=== PATIENT | male | born 1985 | race Caucasian/White ===

== ENCOUNTER 2017-02-02 13:36 | Outpatient (CLI) | payer OTHER ==
--- NOTE | 2017-02-02 14:06 | DIAGNOSTIC IMAGING REPORT ---
PROCEDURE: XR CHEST 2 VIEW INDICATION: CHEST PAIN UNSPECIFIED TECHNIQUE: PA and lateral views. COMPARISON: Chest 01/29/2016 FINDINGS: Lungs are clear. Heart and mediastinum are normal. Thorax is normal. IMPRESSION: 1. Negative chest.
== END 2017-02-02 23:00 ==
LOC: XR SRH 13:36
DX: R07.9 Chest pain, unspecified (principal)

== ENCOUNTER 2017-02-09 11:36 | Outpatient (CLI) | payer OTHER ==
--- NOTE | 2017-02-09 13:20 | DIAGNOSTIC IMAGING REPORT ---
PROCEDURE: US ABDOMEN ULTRASOUND-LIMITED INDICATION: ELEVATED LIVER ENZYMES TECHNIQUE: Sparks scale and color Doppler sonographic images of the abdomen were obtained without comparison. COMPARISON: None. FINDINGS: The liver is normal in size, contour, and echotexture. No mass or intrahepatic biliary dilatation. The gallbladder is normal without stones or sludge. The wall is normal thickness measuring 2.4 mm No pericholecystic fluid or Butler sign. The extrahepatic common duct is normal measuring 4.1 The visualized pancreas is normal without ductal dilatation or peripancreatic fluid collection. The abdominal aorta is normal in its course and caliber. The retrohepatic inferior vena cava is patent. There is appropriate hepatopetal flow in the portal vein. The right kidney measures 10.2 cm in length. There is no perihepatic or perisplenic ascites. IMPRESSION: 1. Normal abdominal ultrasound.
== END 2017-02-09 23:00 ==
LOC: US SRH 11:36
DX: R74.8 Abnormal levels of other serum enzymes (principal)

== ENCOUNTER 2017-02-10 19:29 | Emergency (ER) | payer OTHER ==
--- NOTE | 2017-02-10 21:28 | ED NURSING NOTES ---
Clinical Report - Nurses [facility] [address] [place] [address] 02/10/2017 19:32 Patient: LURDES VANN TRIAGE Triage time 2000. Acuity: LEVEL 3. Chief Complaint: DIZZINESS and NEAR-SYNCOPE and (ear ringing right). Alert. No acute distress. SEPSIS SCREEN: Sepsis Screen. Negative (no infection suspected/documented). ABDIRASHID COMA SCORE: [place] Coma Scale: 15- eyes open spontaneously (4); best verbal response- oriented x 4 (5); best motor response- obeys commands (6). --20:17 Teagan Morris R.N. 20:12 02/10/17. BP: 114/75. HR: 81. RR: 18. O2 saturation: 96%. Temp: 98.1 F. Pain level now 10. --20:17 Teagan Morris R.N. Weight: 105.6 kg. Height/Length: 67 inches. BMI: 36.5. --20:26 Teagan Morris R.N. Medications HydrOXYzine HCl Oral 25 mg, Q 8hrs as needed, panic attacks. Lantus Subcutaneous 26 units, 2x a day. NovoLOG Subcutaneous, as needed (sliding scale). --20:24 Teagan Morris R.N. Cyclobenzaprine HCl ER Oral. --20:24 Teagan Morris R.N. Methocarbamol Oral. --20:25 Teagan Morris R.N. Allergies Amoxicillin. Sulfa Antibiotics. --20:24 Teagan Morris R.N. History Arrived by private vehicle. Historian: patient. Accompanied by family. Primary physician (Loni Reese). ( ambulatory to room). This started 3 days. ( hx of ear ringing, Right ear ringing x few days and at 1800 today had spinning feeling, tried to stand and was unsteady and unable to focus. Now remnants of dizzyness and ear ringing, mild headache, mild nausea.). PAST MEDICAL HX: Immunizations: up-to-date. SOCIAL HX: Never smoker. No alcohol use or drug use. No infectious disease exposure. ABUSE ASSESSMENT: No report of abuse. SELF HARM ASSESSMENT: A self harm assessment was performed. The patient answered "no" to the question "Do you have thoughts of harming or killing yourself?" and "Are you here because you tried to hurt yourself?". FALL RISK ASSESSMENT: Fall risk assessment completed. No fall risk identified. NUTRITIONAL RISK ASSESSMENT: The nutritional risk assessment revealed no deficiencies. FUNCTIONAL ASSESSMENT: Functional assessment: no impairments noted. LEARNING NEEDS ASSESSMENT: The learning needs assessment revealed no barriers. SKIN INTEGRITY ASSESSMENT: Skin integrity risk assessment completed. No skin integrity risk identified. --20:17 Teagan Morris R.N. PROBLEMS: Back Pain. Hyperglycemia. Diabetic Ketoacidosis. Anxiety Reaction. Type I diabetes mellitus uncontrolled. --20:26 Teagan Morris R.N. ADDITIONAL SURGERIES: no known surgeries. Interventions ID band on patient. To treatment room. --20:17 Teagan Morris R.N. PHYSICAL ASSESSMENT Ambulatory to room. GENERAL / NEURO / PSYCH: Oriented X 4. Appears in no acute distress. Alert. Speech within normal limits. RESPIRATORY: Respirations not labored. SKIN: Skin is warm and dry. --20:17 Teagan Morris R.N. NURSING PROGRESS NOTES Monitoring of patient in place. Patient gowned. Head of bed elevated. Two patient identifiers checked. Call light placed in reach. Side rails up x 2. Bed placed in lowest position. Brakes of bed on. Patient ready for evaluation- chart flagged. ED physician notified. --20:17 Teagan Morris R.N. 20:43 02/10/2017 Site #1 started via IV in the right antecubital space with an 20g angiocath, with aseptic technique and good blood return; one attempt. Blood drawn: rainbow set. Labeled in the presence of the patient and sent to the lab. Saline lock flushed with 5 mL saline. --20:43 Teagan Morris R.N. EKG time: (2033). Patient ID band checked for patient name and birthdate: patient confirmed. Blood samples drawn by nurse ; labeled in presence of the patient and sent to lab. --20:45 Teagan Morris R.N. 21:01 02/10/2017 Meclizine PO 50 mg given. Allergies verified, confirmed 5 rights and sedative warning given to the patient. --21:01 Teagan Morris R.N. 21:52 02/10/17. BP: 117/92. HR: 87. RR: 15. O2 saturation: 95%. Temp: 97.7 F. Pain level now: 09/12. 21:00 02/10/17. BP: 100/44. HR: 80. RR: 18. O2 saturation: 95%. --21:53 Teagan Morris R.N. The patient reports no complaints and he is resting quietly. Overall patient status is improved- he states feels better. GENERAL / NEURO / PSYCH: Patient is calm and cooperative. Affect appears normal. Alert. Oriented X 4. RESPIRATORY: No respiratory distress. CVS: Normal sinus rhythm noted. SKIN: Skin is warm and dry. --21:53 Teagan Morris R.N. 22:10 02/10/2017 Site #1 removed upon discharge. Catheter intact. Pressure dressing applied. --22:22 Teagan Morris R.N. DISPOSITION / DISCHARGE Departure time: 2211. Condition at departure: improved and stable. Discharge instructions provided and reviewed with the patient. Patient verbalized understanding. Written instructions provided in [place]. The patient was discharged home and accompanied by spouse. He left the Emergency Department ambulatory and via private vehicle. Spouse driving. --22:18 Teagan Morris R.N. 22:14 02/10/17. BP: deferred. HR: deferred. RR: deferred. O2 saturation: deferred. Temp: deferred. Pain level now deferred. --22:18 Teagan Morris R.N. Locked/Released at 02/10/2017 22:22 by Teagan Morris R.N.
--- NOTE | 2017-02-10 21:28 | ED CLINICAL REPORT ---
Clinical Report - Physicians/Mid Levels [facility] [address] [place] [address] 02/10/2017 19:32 Patient: LURDES VANN Time Seen: 20:26; initial patient contact, initial documentation, patient care assumed. Arrived- By private vehicle. Historian- patient. HISTORY OF PRESENT ILLNESS Chief Complaint: ringing. Modifying factors. Not worsened by anything. Not relieved by anything. This started years ago and is still present and worsening (worse 3 days ago). Location- right ear. The patient has not had pain. The patient has had moderate right-sided tinnitus. The tinnitus on the right has been constant and associated with ringing and vertigo. No ear pain or drainage, hearing loss or nasal discharge or congestion. No complaint of foreign body in the ear, ear trauma or recent barotrauma. (states he recently used ear wash kit to try and remove wax out of L ear). Similar symptoms previously: Chronically, milder. Recent medical care: Not recently seen/assessed. REVIEW OF SYSTEMS No difficulty breathing or chest pain. He has had transient dizziness described as vertiginous in quality (today, first episode came on while laying on couch watching tv). Not lightheaded. All systems otherwise negative, except as recorded above. PAST HISTORY See nurses notes. PROBLEMS: Back Pain. Hyperglycemia. Diabetic Ketoacidosis. Anxiety Reaction. Type I diabetes mellitus uncontrolled. --20:26 Teagan Morris RPrince. ADDITIONAL SURGERIES: no known surgeries. SOCIAL HISTORY Never smoker. Not exposed to second-hand smoke at home. No alcohol use or drug use. No recent travel. Is a local resident. He lives with spouse. FAMILY HISTORY Negative. ADDITIONAL NOTES The nursing notes have been reviewed with agreement regarding the chief complaint, HPI, ROS, PMH and patient medications and allergies. PHYSICAL EXAM Vital Signs: 02/10/2017 20:12 BP: 114/75. HR: 81. RR: 18. O2 saturation: 96%. Temp: 98.1 F. Have been reviewed as normal and appear to be correct. Appearance: Alert. No acute distress. Eyes: Eyes normal inspection. Throat: Pharynx normal. Ear (left): Left ear normal. Left tympanic membrane normal. Nose: Nose normal. Ear (right): There is mild swelling of the external canal. The tympanic membrane is completely obscured by cerumen. Right ear abnormal or tympanic membrane abnormal. Neck: Normal inspection. Neck supple. CVS: Normal heart rate and rhythm. Heart sounds normal. Respiratory: No respiratory distress. Breath sounds normal. Back: Normal inspection. Skin: Skin warm and dry. Normal skin color. No rash. Normal skin turgor. Extremities: Extremities exhibit normal ROM. No lower extremity edema. Neuro: Oriented X 3. No motor deficit. No sensory deficit. LABS, X-RAYS, AND EKG EKG: EKG time: (2033). No acute process. No acute ischemia. Normal EKG. Rate: 81. Normal EKG. The study has been interpreted contemporaneously by me (and Dr East). The EKG appears to be a good tracing. Interpretation time: 2034. Laboratory Tests: CBC w Diff: (CHRISTIAN: 02/10/2017 20:30) ( [facility] [place] 02/10/2017 21:08) Final results Test Result Flag Units (Reference) WHITE BLOOD COUNT 8.8 K/uL (4.5-11.5) RED BLOOD COUNT 5.72 M/uL (4.50-5.90) HEMOGLOBIN 16.6 gm/dL (13.5-17.5) HEMATOCRIT 48.8 % (41.0-53.0) MEAN CELL VOLUME 85 fL (80-100) MEAN CORPUSCULAR HGB 29 pg (26-34) MEAN CORPUSCULAR HGB CONC 34 g/dL (31-37) RED CELL DISTRIBUTION WIDTH 13.0 % (11.6-14.8) PLATELET COUNT 198 K/uL (150-400) NEUTROPHIL % 68.8 % (50-75) LYMPH % 19.9 L % (25-40) MONO % 7.4 % (3-14) EOSINOPHIL % 3.3 % (0-4) BASOPHIL % 0.6 % (0-2) CHEM 13 PANEL: (CHRISTIAN: 02/10/2017 20:30) ( [facility] [place] 02/10/2017 21:06) Final results Test Result Flag Units (Reference) GLUCOSE 164 H mg/dL (70-110) BUN 18 mg/dL (7-18) CREATININE 1.1 mg/dL (0.6-1.3) Estimated GFR >60 mL/min Estimated GFR- >60 mL/min Note: Persistent reduction over 3 months in eGFR<60 mL/min/1.73 m2 defines CKD. Patients with eGFR values>=60 mL/min/1.73 m2 may also have CKD if evidence ofpersistent proteinuria. Additional information may be foundat www.kidney.org. SODIUM 135 L mmol/L (136-145) POTASSIUM 3.9 mmol/L (3.5-5.1) CHLORIDE 103 mmol/L (98-107) CARBON DIOXIDE 31 mmol/L (21-32) CALCIUM 9.4 mg/dL (8.5-10.1) TOTAL PROTEIN 7.3 g/dL (6.4-8.2) ALBUMIN 3.9 g/dL (3.3-5.0) BILIRUBIN, TOTAL 0.5 mg/dL (0.0-1.0) ALKALINE PHOSPHATASE 119 H U/L (46-116) AST (SGOT) 55 H U/L (15-37) ALT (SGPT) 85 H U/L (12-78) MAGNESIUM 2.1 mg/dL (1.8-2.4) CPK 142 U/L (24-260) TROPONIN I <0.05 ng/mL (0.00-1.5) TROPONIN REFERENCE RANGE:<0.1 NEGATIVE0.1-1.5 INDETERMINANT>1.5 POSITIVE . PROGRESS AND PROCEDURES Patient and spouse counseled in person regarding the patient's stable condition, test results and diagnosis. 21:16. Differential Diagnosis: I considered labyrinthitis, drug-related etiology, benign positional vertigo, brainstem TIA and brainstem CVA as a possible cause of dizziness in this patient. This is a partial list of diagnoses considered. Other possible considerations: aom, aoe, cerumen impaction, perforated tm, asa abuse. Above considerations are based on history, physical exam, reassessment, laboratory data and EKG. Differential diagnosis was discussed with patient. Disposition: Discharged home in good and unchanged condition (21:28). Condition: good and stable. CLINICAL IMPRESSION Impacted cerumen right ear. Acute dizziness INSTRUCTIONS Warnings: GENERAL WARNINGS: Return or contact your physician immediately if your condition worsens or changes unexpectedly, if not improving as expected, or if other problems arise. Specifically return if problem worsens. Prescription Medications: Cortisporin otic suspension: Instill 4 drops into affected ear every 6 hours for 1 week. Dispense ten (10) mL. No refills. Substitution is permissible. Meclizine 25 mg: take 1 tablet orally every 8 hours as needed for dizziness. Dispense twenty (20). No refill. Follow-up: Follow up with your doctor in about three days as needed. Call for an appointment. Summary of care provided to patient. Understanding of the discharge instructions verbalized by parent. Follow-up with: Ayden Douglas MD, ENT, , [facility] [address] [address]; Venu Jerez MD, ENT, , [facility], [address] [facility] [address] [address]; Be Serra MD, ENT, , [facility], [facility] [address] [address]; Raj Benitez MD, ENT, , [facility], [facility] [address] [address]; Ayden Reyes MD, ENT, , [facility], [facility] [address] [address]; Sanchez Perales MD, ENT, , [facility], [address] [facility] [address], [place], [address] Follow up in about three days. Call for an appointment. Summary of care provided to patient. (Electronically signed by Cris Whitlock A.R.N.P. 02/11/2017 13:26)
--- NOTE | 2017-02-10 21:28 | ED CLINICAL REPORT ---
Clinical Report - Physicians/Mid Levels [facility] [address] [place] [address] 02/10/2017 19:32 Patient: LURDES VANN Time Seen: 20:26; initial patient contact, initial documentation, patient care assumed. Arrived- By private vehicle. Historian- patient. HISTORY OF PRESENT ILLNESS Chief Complaint: ringing. Modifying factors. Not worsened by anything. Not relieved by anything. This started years ago and is still present and worsening (worse 3 days ago). Location- right ear. The patient has not had pain. The patient has had moderate right-sided tinnitus. The tinnitus on the right has been constant and associated with ringing and vertigo. No ear pain or drainage, hearing loss or nasal discharge or congestion. No complaint of foreign body in the ear, ear trauma or recent barotrauma. (states he recently used ear wash kit to try and remove wax out of L ear). Similar symptoms previously: Chronically, milder. Recent medical care: Not recently seen/assessed. REVIEW OF SYSTEMS No difficulty breathing or chest pain. He has had transient dizziness described as vertiginous in quality (today, first episode came on while laying on couch watching tv). Not lightheaded. All systems otherwise negative, except as recorded above. PAST HISTORY See nurses notes. PROBLEMS: Back Pain. Hyperglycemia. Diabetic Ketoacidosis. Anxiety Reaction. Type I diabetes mellitus uncontrolled. --20:26 Teagan Morris RPrince. ADDITIONAL SURGERIES: no known surgeries. SOCIAL HISTORY Never smoker. Not exposed to second-hand smoke at home. No alcohol use or drug use. No recent travel. Is a local resident. He lives with spouse. FAMILY HISTORY Negative. ADDITIONAL NOTES The nursing notes have been reviewed with agreement regarding the chief complaint, HPI, ROS, PMH and patient medications and allergies. PHYSICAL EXAM Vital Signs: 02/10/2017 20:12 BP: 114/75. HR: 81. RR: 18. O2 saturation: 96%. Temp: 98.1 F. Have been reviewed as normal and appear to be correct. Appearance: Alert. No acute distress. Eyes: Eyes normal inspection. Throat: Pharynx normal. Ear (left): Left ear normal. Left tympanic membrane normal. Nose: Nose normal. Ear (right): There is mild swelling of the external canal. The tympanic membrane is completely obscured by cerumen. Right ear abnormal or tympanic membrane abnormal. Neck: Normal inspection. Neck supple. CVS: Normal heart rate and rhythm. Heart sounds normal. Respiratory: No respiratory distress. Breath sounds normal. Back: Normal inspection. Skin: Skin warm and dry. Normal skin color. No rash. Normal skin turgor. Extremities: Extremities exhibit normal ROM. No lower extremity edema. Neuro: Oriented X 3. No motor deficit. No sensory deficit. LABS, X-RAYS, AND EKG EKG: EKG time: (2033). No acute process. No acute ischemia. Normal EKG. Rate: 81. Normal EKG. The study has been interpreted contemporaneously by me (and Dr East). The EKG appears to be a good tracing. Interpretation time: 2034. Laboratory Tests: CBC w Diff: (CHRISTIAN: 02/10/2017 20:30) ( [facility] [place] [place] 02/10/[place] 21:08) Final results Test Result Flag Units (Reference) WHITE BLOOD COUNT 8.8 K/uL (4.5-11.5) RED BLOOD COUNT 5.72 M/uL (4.50-5.90) HEMOGLOBIN 16.6 gm/dL (13.5-17.5) HEMATOCRIT 48.8 % (41.0-53.0) MEAN CELL VOLUME 85 fL (80-100) MEAN CORPUSCULAR HGB 29 pg (26-34) MEAN CORPUSCULAR HGB CONC 34 g/dL (31-37) RED CELL DISTRIBUTION WIDTH 13.0 % (11.6-14.8) PLATELET COUNT 198 K/uL (150-400) NEUTROPHIL % 68.8 % (50-75) LYMPH % 19.9 L % (25-40) MONO % 7.4 % (3-14) EOSINOPHIL % 3.3 % (0-4) BASOPHIL % 0.6 % (0-2) CHEM 13 PANEL: (CHRISTIAN: 02/10/2017 20:30) ( [facility] [place] [place] 02/10/2017 21:06) Final results Test Result Flag Units (Reference) GLUCOSE 164 H mg/dL (70-110) BUN 18 mg/dL (7-18) CREATININE 1.1 mg/dL (0.6-1.3) Estimated GFR >60 mL/min Estimated GFR- >60 mL/min Note: Persistent reduction over 3 months in eGFR<60 mL/min/1.73 m2 defines CKD. Patients with eGFR values>=60 mL/min/1.73 m2 may also have CKD if evidence ofpersistent proteinuria. Additional information may be foundat www.kidney.org. SODIUM 135 L mmol/L (136-145) POTASSIUM 3.9 mmol/L (3.5-5.1) CHLORIDE 103 mmol/L (98-107) CARBON DIOXIDE 31 mmol/L (21-32) CALCIUM 9.4 mg/dL (8.5-10.1) TOTAL PROTEIN 7.3 g/dL (6.4-8.2) ALBUMIN 3.9 g/dL (3.3-5.0) BILIRUBIN, TOTAL 0.5 mg/dL (0.0-1.0) ALKALINE PHOSPHATASE 119 H U/L (46-116) AST (SGOT) 55 H U/L (15-37) ALT (SGPT) 85 H U/L (12-78) MAGNESIUM 2.1 mg/dL (1.8-2.4) CPK 142 U/L (24-260) TROPONIN I <0.05 ng/mL (0.00-1.5) TROPONIN REFERENCE RANGE:<0.1 NEGATIVE0.1-1.5 INDETERMINANT>1.5 POSITIVE . PROGRESS AND PROCEDURES Patient and spouse counseled in person regarding the patient's stable condition, test results and diagnosis. 21:16. Differential Diagnosis: I considered labyrinthitis, drug-related etiology, benign positional vertigo, brainstem TIA and brainstem CVA as a possible cause of dizziness in this patient. This is a partial list of diagnoses considered. Other possible considerations: aom, aoe, cerumen impaction, perforated tm, asa abuse. Above considerations are based on history, physical exam, reassessment, laboratory data and EKG. Differential diagnosis was discussed with patient. Disposition: Discharged home in good and unchanged condition (21:28). Condition: good and stable. CLINICAL IMPRESSION Impacted cerumen right ear. Acute dizziness INSTRUCTIONS Warnings: GENERAL WARNINGS: Return or contact your physician immediately if your condition worsens or changes unexpectedly, if not improving as expected, or if other problems arise. Specifically return if problem worsens. Prescription Medications: Cortisporin otic suspension: Instill 4 drops into affected ear every 6 hours for 1 week. Dispense ten (10) mL. No refills. Substitution is permissible. Meclizine 25 mg: take 1 tablet orally every 8 hours as needed for dizziness. Dispense twenty (20). No refill. Follow-up: Follow up with your doctor in about three days as needed. Call for an appointment. Summary of care provided to patient. Understanding of the discharge instructions verbalized by parent. Follow-up with: Ayden Douglas MD, ENT, , [facility] [address] [address]; Venu Jerez MD, ENT, , [facility], [address] [place] [address]; Be Serra MD, ENT, , [facility], [facility] [address] [address]; Raj Benitez MD, ENT, , [facility], [facility] [address] [address]; Ayden Reyes MD, ENT, , [facility], [facility] [address] [place] [address]; Sanchez Perales MD, ENT, , [facility], [address] [facility], [place], [address] Follow up in about three days. Call for an appointment. Summary of care provided to patient. (Electronically signed by Cris Whitlock A.R.N.P. 02/11/2017 13:26)
--- NOTE | 2017-02-10 21:28 | ED ORDER SUMMARY ---
..... Patient: LURDES VANN OrderSheet [facility] VisitID: [id number] [address] [place] [address] 31y, M Registration Date/Time: 02/10/2017 ORDER SHEET Weight: 105.6 kg Allergies: Amoxicillin, Sulfa Antibiotics GENERAL ORDERS: Cardiac Panel Stat (20:42 02/10/2017 LAbe R.N. per protocol) (Ack 20:51 CHagerty ER Phonograph Mechanic) UA-Culture if indicated Urgent (20:42 02/10/2017 LAbe R.N. per protocol) (Ack 20:51 CHagerty ER Phonograph Mechanic) EKG - ER Stat (20:42 02/10/2017 LAbe R.N. per protocol) (20:43 LAbe R.N.) Pulse oximeter (20:42 02/10/2017 LAbe R.N. per protocol) (20:43 LAbe R.N.) MEDICATION ORDERS: Meclizine PO 50 mg (NOW) (20:54 02/10/2017 HBivens A.R.N.P.) (21:01 LAbe R.N.) IV FLUIDS: IV Saline Lock (20:42 02/10/2017 LAbe R.N. per protocol) (20:43 LAbe R.N.) ORDER SHEET NOTES: [Electronically signed by Teagan Morris R.N. (22:22 02/10/2017)] [Electronically signed by Cris Whitlock A.R.N.P. (13:26 02/11/2017)] [Electronically locked/signed by Teagan Morris R.N. (22:22 02/10/2017)]
--- NOTE | 2017-02-10 21:28 | ED ORDER SUMMARY ---
..... Patient: LURDES VANN OrderSheet [facility] VisitID: [id number] [address] [place] [address] 31y, M Registration Date/Time: 02/10/2017 ORDER SHEET Weight: 105.6 kg Allergies: Amoxicillin, Sulfa Antibiotics GENERAL ORDERS: Cardiac Panel Stat (20:42 02/10/2017 LAbe R.N. per protocol) (Ack 20:51 CHagerty ER Furnace Mason) UA-Culture if indicated Urgent (20:42 02/10/2017 LAbe R.N. per protocol) (Ack 20:51 CHagerty ER Furnace Mason) EKG - ER Stat (20:42 02/10/2017 LAbe R.N. per protocol) (20:43 LAbe R.N.) Pulse oximeter (20:42 02/10/2017 LAbe R.N. per protocol) (20:43 LAbe R.N.) MEDICATION ORDERS: Meclizine PO 50 mg (NOW) (20:54 02/10/2017 HBivens A.R.N.P.) (21:01 LAbe R.N.) IV FLUIDS: IV Saline Lock (20:42 02/10/2017 LAbe R.N. per protocol) (20:43 LAbe R.N.) ORDER SHEET NOTES: [Electronically signed by Teagan Morris R.N. (22:22 02/10/2017)] [Electronically signed by Cris Whitlock A.R.N.P. (13:26 02/11/2017)] [Electronically locked/signed by Teagan Morris R.N. (22:22 02/10/2017)]
--- NOTE | 2017-02-11 13:27 | ED DISCHARGE INSTRUCTIONS ---
Patient: LURDES VANN General Instructions [facility] VisitID: [id number] [address] [place] [address] 31y, M Registration Date/Time: 02/10/2017 Impacted cerumen right ear. Acute dizziness INSTRUCTIONS Warnings: GENERAL WARNINGS: Return or contact your physician immediately if your condition worsens or changes unexpectedly, if not improving as expected, or if other problems arise. Specifically return if problem worsens. Prescription Medications: Cortisporin otic suspension: Instill 4 drops into affected ear every 6 hours for 1 week. Dispense ten (10) mL. No refills. Substitution is permissible. Meclizine 25 mg: take 1 tablet orally every 8 hours as needed for dizziness. Dispense twenty (20). No refill. Follow-up: Follow up with your doctor in about three days as needed. Call for an appointment. Summary of care provided to patient. Understanding of the discharge instructions verbalized by parent. Follow-up with: Ayden Douglas MD, ENT, , [facility] [address] [address]; Venu Jerez MD, ENT, , [facility], [address] [facility], [address] [address]; Be Serra MD, ENT, , [facility], [address] [place] [address]; Raj Benitez MD, ENT, , [place] [address]; Ayden Reyes MD, ENT, , [facility], [facility] [address] [address]; Sanchez Perales MD, ENT, , [facility], [address] [facility] [address], [place] [address] Follow up in about three days. Call for an appointment. Summary of care provided to patient. ADDITIONAL INFORMATION Earwax, Home Treatment Everyone produces earwax from the lining of the ear canal. It serves to lubricate and protect the ear. The wax that forms in the canal naturally moves toward the outside of the ear and falls out. Sometimes there will be a build-up of wax in the ear canal causing a blockage and loss of hearing. Directions are given below for home treatment. Home Care: If your doctor has advised you to remove a wax blockage yourself, follow these directions: Unless a prescription medicine was given, you may use an mara-ikr-mahwfch product made for clearing earwax (such as Debrox or Murine Earwax Drops). These contain carbamide peroxide and are available [id number]. Lie down with the blocked ear facing upward. Apply one dropper full of medicine and wait a few minutes. Wiggle the outer ear to get the solution to enter the canal. Lean over a sink or basin with the blocked ear facing downward. Use a rubber bulb syringe filled with warm (not hot or cold) water to rinse the ear several times. Use gentle pressure only. If you are having trouble draining the water out of your ear canal, put a few drops of rubbing alcohol (isopropyl alcohol) into the ear canal. This will help remove the remaining water. Repeat this procedure once a day for up to three days or until your hearing is back to normal. Do not use this treatment for more than three days in a row.. Do Not DO NOT use cold water to rinse the ear since this will make you dizzy. DO NOT perform this procedure if you have an ear infection. DO NOT perform this procedure if you have a ruptured eardrum. DO NOT use cotton applicators/Q-tips, matches, toothpicks, deniz pins, keys or other objects to "clean" the ear canal. This can cause infection of the ear canal or rupture of the eardrum. Because of their size and shape, it is common for cotton applicators/Q-tips to push the ear wax deeper into the ear canal instead of removing it. This can make matters worse. Follow Up with your doctor or this facility if you are not improving after three cleaning attempts. Get Prompt Medical Attention if any of the following occur: Worsening ear pain Fever of 100.4F (38C) or higher, or as directed by your healthcare provider Hearing does not return to normal after three days of treatment Fluid drainage or bleeding from the ear canal Swelling, redness or tenderness of the outer ear Headache, neck pain or stiff neck Dizziness [Uncertain Cause] Dizziness is a common symptom sometimes described as "lightheadedness" or feeling like you are going to faint. If it lasts for only a few seconds and is related to changes in position (such as getting up after lying or sitting for a long time), it is usually not a sign of anything serious. Dizziness that lasts for minutes to hours, or comes on for no apparent reason, may be a sign of a more serious problem (such as dehydration, a medicine reaction, disease of the heart or brain). Today's exam did not show an exact cause for your dizzy spell . Sometimes additional tests are required before a cause can be found. Therefore, it is important to follow up with your doctor if your symptoms continue. Home Care: 1) If a dizzy spell occurs and lasts more than a few seconds, lie down until it passes. If you are lying down, then you cannot hurt yourself by falling if you do faint. 2) Do not drive or operate dangerous equipment until the dizzy spells have stopped for at least 48 hours. 3) If dizzy spells occur with sudden standing, this may be a sign of mild dehydration. Drink extra fluids over the next few days. 4) If you recently started a new medicine or if you had the dose of a current medicine increased (especially blood pressure medicine), talk with the prescribing doctor about your symptoms. Dose adjustments may be needed. Follow Up with your doctor for further evaluation within the next seven days, if your symptoms continue. Get Prompt Medical Attention if any of the following occur: -- Worsening of your symptoms -- Fainting, headache or seizure -- Repeated vomiting -- Feeling like you or the room is spinning -- Chest, arm, neck, back or jaw pain -- Palpitations (the sense that your heart is fluttering or beating fast or hard) -- Shortness of breath -- Blood in vomit or stool (black or red color) -- Weakness of an arm or leg or one side of the face -- Difficulty with speech or vision Meclizine Hydrochloride Oral tablet What is this medicine? MECLIZINE (MEK adeline bryanen) is an antihistamine. It is used to prevent nausea, vomiting, or dizziness caused by motion sickness. It is also used to prevent and treat vertigo (extreme dizziness or a feeling that you or your surroundings are tilting or spinning around). How should I use this medicine? Take this medicine by mouth with a glass of water. Follow the directions on the prescription label. If you are using this medicine to prevent motion sickness, take the dose at least 1 hour before travel. If it upsets your stomach, take it with food or milk. Take your doses at regular intervals. Do not take your medicine more often than directed. Talk to your paramedical aide regarding the use of this medicine in children. Special care may be needed. What side effects may I notice from receiving this medicine? Side effects that you should report to your doctor or health direct care counselor as soon as possible: fainting spells fast or irregular heartbeat Side effects that usually do not require medical attention (report to your doctor or health direct care counselor if they continue or are bothersome): constipation difficulty passing urine difficulty sleeping headache stomach upset What may interact with this medicine? barbiturate medicines for inducing sleep or treating seizures digoxin medicines for anxiety or sleeping problems, like alprazolam, diazepam or temazepam medicines for hay fever and other allergies medicines for mental depression medicines for movement abnormalities as in Parkinson's disease, or for stomach problems medicines for pain medicines that relax muscles What if I miss a dose? If you miss a dose, take it as soon as you can. If it is almost time for your next dose, take only that dose. Do not take double or extra doses. Where should I keep my medicine? Keep out of the reach of children. Store at room temperature between 15 and 30 degrees C (59 and 86 degrees F). Keep container tightly closed. Throw away any unused medicine after the expiration date. What should I tell my health care provider before I take this medicine? They need to know if you have any of these conditions: asthma glaucoma prostate trouble stomach problems urinary problems an unusual or allergic reaction to meclizine, other medicines, foods, dyes, or preservatives or trying to get breast-feeding What should I watch for while using this medicine? If you are taking this medicine on a regular schedule, visit your doctor or health direct care counselor for regular checks on your progress. You may get dizzy, drowsy or have blurred vision. Do not drive, use machinery, or do anything that needs mental alertness until you know how this medicine affects you. Do not stand or sit up quickly, especially if you are an older patient. This reduces the risk of dizzy or fainting spells. Alcohol can increase possible dizziness. Avoid alcoholic drinks. Your mouth may get dry. Chewing sugarless gum or sucking hard candy, and drinking plenty of water may help. Contact your doctor if the problem does not go away or is severe. This medicine may cause dry eyes and blurred vision. If you wear contact lenses you may feel some discomfort. Lubricating drops may help. See your eye doctor if the problem does not go away or is severe. You have been given the following additional information: Cerumen Impaction, Home Care Dizziness, Unk Cause Meclizine Hydrochloride Oral tablet (Electronically signed by Cris Whitlock A.R.N.P. 02/11/2017 13:26)
--- NOTE | 2017-02-11 13:27 | ED MED RECONCILIATION SUMMARY ---
Patient: LURDES VANN Medication Reconciliation Report [facility] VisitID: [id number] [address] [place] [address] 31y, M Registration Date/Time: 02/10/2017 Weight: 105.6 kg Height/Length: 67 in. BMI: 36.5 ALLERGIES: Amoxicillin, Sulfa Antibiotics The patient's Home Medications are listed below: THE FOLLOWING MEDICATIONS NEED TO BE RECONCILED: Cyclobenzaprine HCl ER Oral HydrOXYzine HCl Oral 25 mg, Q 8hrs, panic attacks Lantus Subcutaneous 26 units, 2x a day Methocarbamol Oral NovoLOG Subcutaneous, sliding scale The source(s) of the original Home Medication information: Not obtained. The following Medications were given to the patient in the Emergency Department: Meclizine [PO] PO 50 mg, administered: 02/10/2017 9:01:00 PM The following Medications were prescribed to the patient: Cortisporin otic suspension: Instill 4 drops into affected ear every 6 hours for 1 week. Dispense ten (10) mL. No refills. Substitution is permissible. -- Cris Whitlock, Osmani.R.N.P. Meclizine 25 mg: take 1 tablet orally every 8 hours as needed for dizziness. Dispense twenty (20). No refill. -- Cris Whitlock A.R.N.P.
--- NOTE | 2017-02-11 13:27 | ED MED RECONCILIATION SUMMARY ---
Patient: LURDES VANN Medication Reconciliation Report [facility] VisitID: [id number] [address] [place] [address] 31y, M Registration Date/Time: 02/10/2017 Weight: 105.6 kg Height/Length: 67 in. BMI: 36.5 ALLERGIES: Amoxicillin, Sulfa Antibiotics The patient's Home Medications are listed below: THE FOLLOWING MEDICATIONS NEED TO BE RECONCILED: Cyclobenzaprine HCl ER Oral HydrOXYzine HCl Oral 25 mg, Q 8hrs, panic attacks Lantus Subcutaneous 26 units, 2x a day Methocarbamol Oral NovoLOG Subcutaneous, sliding scale The source(s) of the original Home Medication information: Not obtained. The following Medications were given to the patient in the Emergency Department: Meclizine [PO] PO 50 mg, administered: 02/10/2017 9:01:00 PM The following Medications were prescribed to the patient: Cortisporin otic suspension: Instill 4 drops into affected ear every 6 hours for 1 week. Dispense ten (10) mL. No refills. Substitution is permissible. -- Cris Whitlock, Osmani.R.N.P. Meclizine 25 mg: take 1 tablet orally every 8 hours as needed for dizziness. Dispense twenty (20). No refill. -- Cris Whitlock A.R.N.P.
--- NOTE | 2017-02-11 13:27 | ED DISCHARGE INSTRUCTIONS ---
Patient: LURDES VANN General Instructions [facility] VisitID: [id number] [address] [place] [address] 31y, M Registration Date/Time: 02/10/2017 Impacted cerumen right ear. Acute dizziness INSTRUCTIONS Warnings: GENERAL WARNINGS: Return or contact your physician immediately if your condition worsens or changes unexpectedly, if not improving as expected, or if other problems arise. Specifically return if problem worsens. Prescription Medications: Cortisporin otic suspension: Instill 4 drops into affected ear every 6 hours for 1 week. Dispense ten (10) mL. No refills. Substitution is permissible. Meclizine 25 mg: take 1 tablet orally every 8 hours as needed for dizziness. Dispense twenty (20). No refill. Follow-up: Follow up with your doctor in about three days as needed. Call for an appointment. Summary of care provided to patient. Understanding of the discharge instructions verbalized by parent. Follow-up with: Ayden Douglas MD, ENT, , [facility] [address] [address]; Venu Jerez MD, ENT, , [facility], [address] [facility], [address] [address]; Be Serra MD, ENT, , [facility], [address] [place] [address]; Raj Benitez MD, ENT, , [place] [address]; Ayden Reyes MD, ENT, , [facility], [facility] [address] [address]; Sanchez Perales MD, ENT, , [facility], [address] [facility] [address], [place] [address] Follow up in about three days. Call for an appointment. Summary of care provided to patient. ADDITIONAL INFORMATION Earwax, Home Treatment Everyone produces earwax from the lining of the ear canal. It serves to lubricate and protect the ear. The wax that forms in the canal naturally moves toward the outside of the ear and falls out. Sometimes there will be a build-up of wax in the ear canal causing a blockage and loss of hearing. Directions are given below for home treatment. Home Care: If your doctor has advised you to remove a wax blockage yourself, follow these directions: Unless a prescription medicine was given, you may use an pxti-pmh-hfuoaob product made for clearing earwax (such as Debrox or Murine Earwax Drops). These contain carbamide peroxide and are available [id number]. Lie down with the blocked ear facing upward. Apply one dropper full of medicine and wait a few minutes. Wiggle the outer ear to get the solution to enter the canal. Lean over a sink or basin with the blocked ear facing downward. Use a rubber bulb syringe filled with warm (not hot or cold) water to rinse the ear several times. Use gentle pressure only. If you are having trouble draining the water out of your ear canal, put a few drops of rubbing alcohol (isopropyl alcohol) into the ear canal. This will help remove the remaining water. Repeat this procedure once a day for up to three days or until your hearing is back to normal. Do not use this treatment for more than three days in a row.. Do Not DO NOT use cold water to rinse the ear since this will make you dizzy. DO NOT perform this procedure if you have an ear infection. DO NOT perform this procedure if you have a ruptured eardrum. DO NOT use cotton applicators/Q-tips, matches, toothpicks, deniz pins, keys or other objects to "clean" the ear canal. This can cause infection of the ear canal or rupture of the eardrum. Because of their size and shape, it is common for cotton applicators/Q-tips to push the ear wax deeper into the ear canal instead of removing it. This can make matters worse. Follow Up with your doctor or this facility if you are not improving after three cleaning attempts. Get Prompt Medical Attention if any of the following occur: Worsening ear pain Fever of 100.4F (38C) or higher, or as directed by your healthcare provider Hearing does not return to normal after three days of treatment Fluid drainage or bleeding from the ear canal Swelling, redness or tenderness of the outer ear Headache, neck pain or stiff neck Dizziness [Uncertain Cause] Dizziness is a common symptom sometimes described as "lightheadedness" or feeling like you are going to faint. If it lasts for only a few seconds and is related to changes in position (such as getting up after lying or sitting for a long time), it is usually not a sign of anything serious. Dizziness that lasts for minutes to hours, or comes on for no apparent reason, may be a sign of a more serious problem (such as dehydration, a medicine reaction, disease of the heart or brain). Today's exam did not show an exact cause for your dizzy spell . Sometimes additional tests are required before a cause can be found. Therefore, it is important to follow up with your doctor if your symptoms continue. Home Care: 1) If a dizzy spell occurs and lasts more than a few seconds, lie down until it passes. If you are lying down, then you cannot hurt yourself by falling if you do faint. 2) Do not drive or operate dangerous equipment until the dizzy spells have stopped for at least 48 hours. 3) If dizzy spells occur with sudden standing, this may be a sign of mild dehydration. Drink extra fluids over the next few days. 4) If you recently started a new medicine or if you had the dose of a current medicine increased (especially blood pressure medicine), talk with the prescribing doctor about your symptoms. Dose adjustments may be needed. Follow Up with your doctor for further evaluation within the next seven days, if your symptoms continue. Get Prompt Medical Attention if any of the following occur: -- Worsening of your symptoms -- Fainting, headache or seizure -- Repeated vomiting -- Feeling like you or the room is spinning -- Chest, arm, neck, back or jaw pain -- Palpitations (the sense that your heart is fluttering or beating fast or hard) -- Shortness of breath -- Blood in vomit or stool (black or red color) -- Weakness of an arm or leg or one side of the face -- Difficulty with speech or vision Meclizine Hydrochloride Oral tablet What is this medicine? MECLIZINE (MEK adeline bryanen) is an antihistamine. It is used to prevent nausea, vomiting, or dizziness caused by motion sickness. It is also used to prevent and treat vertigo (extreme dizziness or a feeling that you or your surroundings are tilting or spinning around). How should I use this medicine? Take this medicine by mouth with a glass of water. Follow the directions on the prescription label. If you are using this medicine to prevent motion sickness, take the dose at least 1 hour before travel. If it upsets your stomach, take it with food or milk. Take your doses at regular intervals. Do not take your medicine more often than directed. Talk to your pewter caster regarding the use of this medicine in children. Special care may be needed. What side effects may I notice from receiving this medicine? Side effects that you should report to your doctor or health healthcare science specialist as soon as possible: fainting spells fast or irregular heartbeat Side effects that usually do not require medical attention (report to your doctor or health healthcare science specialist if they continue or are bothersome): constipation difficulty passing urine difficulty sleeping headache stomach upset What may interact with this medicine? barbiturate medicines for inducing sleep or treating seizures digoxin medicines for anxiety or sleeping problems, like alprazolam, diazepam or temazepam medicines for hay fever and other allergies medicines for mental depression medicines for movement abnormalities as in Parkinson's disease, or for stomach problems medicines for pain medicines that relax muscles What if I miss a dose? If you miss a dose, take it as soon as you can. If it is almost time for your next dose, take only that dose. Do not take double or extra doses. Where should I keep my medicine? Keep out of the reach of children. Store at room temperature between 15 and 30 degrees C (59 and 86 degrees F). Keep container tightly closed. Throw away any unused medicine after the expiration date. What should I tell my health care provider before I take this medicine? They need to know if you have any of these conditions: asthma glaucoma prostate trouble stomach problems urinary problems an unusual or allergic reaction to meclizine, other medicines, foods, dyes, or preservatives or trying to get breast-feeding What should I watch for while using this medicine? If you are taking this medicine on a regular schedule, visit your doctor or health healthcare science specialist for regular checks on your progress. You may get dizzy, drowsy or have blurred vision. Do not drive, use machinery, or do anything that needs mental alertness until you know how this medicine affects you. Do not stand or sit up quickly, especially if you are an older patient. This reduces the risk of dizzy or fainting spells. Alcohol can increase possible dizziness. Avoid alcoholic drinks. Your mouth may get dry. Chewing sugarless gum or sucking hard candy, and drinking plenty of water may help. Contact your doctor if the problem does not go away or is severe. This medicine may cause dry eyes and blurred vision. If you wear contact lenses you may feel some discomfort. Lubricating drops may help. See your eye doctor if the problem does not go away or is severe. You have been given the following additional information: Cerumen Impaction, Home Care Dizziness, Unk Cause Meclizine Hydrochloride Oral tablet (Electronically signed by Cris Whitlock A.R.N.P. 02/11/2017 13:26)
--- NOTE | 2017-02-11 13:27 | ED MAR SUMMARY ---
..... Medication Administration Record [facility] [address] [place] [address] Patient: LURDES VANN Visit ID: [id number] 31y, M Weight: 105.6 kg Height/Length: 67 in BMI: 36.5 ALLERGIES: Amoxicillin, Sulfa Antibiotics Given 21:01 02/10/2017 Teagan Morris R.N. Medication Administered: MECLIZINE [PO], Dose: 50 mg PO. Medication Ordered: Meclizine PO 50 mg (NOW).
--- NOTE | 2017-02-11 13:27 | ED MAR SUMMARY ---
..... Medication Administration Record [facility] [address] [place] [address] Patient: LURDES VANN Visit ID: [id number] 31y, M Weight: 105.6 kg Height/Length: 67 in BMI: 36.5 ALLERGIES: Amoxicillin, Sulfa Antibiotics Given 21:01 02/10/2017 Teagan Morris R.N. Medication Administered: MECLIZINE [PO], Dose: 50 mg PO. Medication Ordered: Meclizine PO 50 mg (NOW).
== END 2017-02-10 22:12 | disposition home or self-care (01) ==
LOC: ED SRH 19:29
DX: H61.21 Impacted cerumen, right ear (principal); R42 Dizziness and giddiness; E10.65 Type 1 diabetes mellitus with hyperglycemia; Z79.4 Long term (current) use of insulin; Z79.899 Other long term (current) drug therapy; Z88.2 Allergy status to sulfonamides; Z88.1 Allergy status to other antibiotic agents
CPT/HCPCS: 90100; 90616; 92610; 92720; 95059